=== PATIENT | female | born 1985 | race American Indian/Alaskan Native ===

== ENCOUNTER 2017-10-10 18:30 | Emergency (ER) | payer MEDICAID ==
[2017-10-10] MEDS ORDERED: LIDOCAINE 2% JELLY 20 ML (UROJECT) UR ONE (18:58)
--- NOTE | 2017-10-10 19:13 | EDPHY ---
H & P Time Seen by Provider: 10/10/17 19:09 HPI/ROS: CHIEF COMPLAINT: Right ear pain HISTORY OF PRESENT ILLNESS: 31-year-old female presents reporting that her right ear is clogged with cerumen. She has had pain and pressure in the ear for a day and half. No fever, no cough symptoms, no runny nose. No complaints related to the left ear. Patient states she has had a issue with cerumen buildup in the past. She has tried hydrogen peroxide and debrox yesterday with minimal relief. REVIEW OF SYSTEMS: Aside from elements discussed in the HPI, a comprehensive 10-point review of systems was reviewed and is negative. PAST MEDICAL HISTORY: Patient denies. SOCIAL HISTORY: Nonsmoker. VITAL SIGNS: see nurse's notes. GENERAL: Well-developed, well-nourished, in no acute distress. HEENT: Pupils equal round reactive to light. Conjunctivae are clear. No discharge. Left ear: Left tympanic membrane is clear, EAC is clear. Right ear: EAC is partially occluded with moist, slightly bloody cerumen. This was manually removed within a lighted ear curette. Once removed the patient has abrasions on her external auditory canal a small amount of bleeding. There is sick, black cerumen against the tympanic membrane. Oropharynx is clear. Neck is supple. No meningismus. Full range of motion. NEURO: Alert and oriented, grossly nonfocal. SKIN: Warm and dry, no rash. Smoking Status: Never smoked Constitutional: Initial Vital Signs Temperature (C) 37 C 10/10/17 18:36 Heart Rate 70 10/10/17 18:36 Respiratory Rate 18 10/10/17 18:36 Blood Pressure 102/67 10/10/17 18:36 O2 Sat (%) 98 10/10/17 18:36 O2 Delivery Mode Room Air Allergies/Adverse Reactions: morphine Allergy (Verified 10/10/17 18:39) Home Medications: Medication Instructions Recorded NK [No Known Home Meds] 10/10/17 Medical Decision Making ED Course/Re-evaluation: Moderate amount of cerumen was removed by myself utilizing a lighted curette. Patient does have some abrasions on her external auditory canal. I am now able to visualize impacted cerumen resting against the eardrum. Patient had 5 cc of 2% lidocaine Uro jet instilled in the external auditory canal. She then had the ear canal irrigated with removal of a large amount of cerumen. On re- examination the patient's external auditory canal is clear. There remains a very small residual amount of cerumen. Patient was feeling much improved following the procedure. She was discharged with instructions regarding Cortisporin otic ear drops as well as use of the debrox [id number] cerumen removal solution. Differential Diagnosis: Differential diagnoses for the patient's symptom complex was considered including but not limited to cerumen impaction, otitis media, otitis externa, foreign body, trauma to the external auditory canal. - Data Points Medications Given: Discontinued Medications Lidocaine (Uroject Lidocaine 2% Jelly) 20 ml UR EDNOW ONE Stop: 10/10/17 18:59 Last Admin: 10/10/17 19:06 Dose: 20 ml Departure - Departure Disposition: Home, Routine, Self-Care Clinical Impression: Cerumen impaction Qualifiers: Laterality: right Qualified Code(s): H61.21 - Impacted cerumen, right ear Condition: Good Instructions: Colistin/Neomycin/Hydrocortisone (Into the ear), Carbamide Peroxide (Into the ear) Additional Instructions: Please use the Cortisporin ear drops 1-2 drops 4 times a day for the next 4-5 days to help treat the abrasions on your external auditory ear canal. If you feel you are developing a reaccumulation of ear wax, I would recommend the [id number] ear wax removal, such as Debrox. Follow up with the Ear Nose and Throat physician as needed. Referrals: Irina Freitas PAC [Primary Care Provider] - As per Instructions Da Colbert MD [Medical Doctor] - As per Instructions (Follow up at [facility] as needed.)
[2017-10-10] MEDS ORDERED: NEOMYCIN/POLYMYX B/HC SUSP 10 ML OTIC.BTL EACHEAR ONE (19:39)
[2017-10-10 19:59] VITALS: BP 124/77; PULSE 69; RESP 16; TEMP 98.2; O2SAT 97
== END 2017-10-10 19:56 | disposition home or self-care (01) ==
LOC: CED 18:30
PROC: F09Z3ZZ Cerumen Management Treatment (ICD-10-PCS; principal; 2017-10-10)
DX: H61.21 Impacted cerumen, right ear (principal)